=== PATIENT | female | born 1995 | race Two or more races ===

== ENCOUNTER 2024-11-18 22:22 | Inpatient (IN) | payer OTHER ==
[2024-11-18 23:57] VITALS: BMI 24.7
[2024-11-19] MEDS ORDERED: BISMUTH SUBSALICYLATE 524 MG/30 ML PO PRN (01:14)
[2024-11-19] MEDS ORDERED: hydrOXYzine PAMOATE 25 MG CAPSULE (FP) PO PRN (01:14)
[2024-11-19] MEDS ORDERED: BENZOCAINE/MENTHOL (CHLORASEPTIC ) LOZENGE MM PRN (01:14)
[2024-11-19] MEDS ORDERED: METHOCARBAMOL 500 MG TABLET PO PRN (01:14)
[2024-11-19] MEDS ORDERED: NALOXONE (NARCAN) HCL 4 MG/0.1 ML SPRAY NS PRN (01:14)
[2024-11-19] MEDS ORDERED: MAGNESIUM HYDROX 2400MG/30ML ORAL SUSPENSION 30 ML CUP PO PRN (01:14)
[2024-11-19] MEDS ORDERED: BENZONATATE 200 MG CAPSULE PO PRN (01:14)
[2024-11-19] MEDS ORDERED: IBUPROFEN 600 MG TABLET (FP) PO PRN (01:14)
[2024-11-19] MEDS ORDERED: POLYETHYLENE GLYCOL (HEALTHYLAX) 3350 17 GM PACKET PO PRN (01:14)
[2024-11-19] MEDS ORDERED: guaiFENesin 600 MG TABLET.ER (FP) PO PRN (01:14)
[2024-11-19] MEDS ORDERED: MAG HYDROX/AL HYDROX/SIMETH 30 ML UNIT-DOSE CUP PO PRN (01:14)
[2024-11-19] MEDS ORDERED: DICYCLOMINE HCL 10 MG CAPSULE PO PRN (01:14)
[2024-11-19] MEDS ORDERED: IBUPROFEN 400 MG TABLET (FP) PO PRN (01:14)
[2024-11-19] MEDS ORDERED: LOPERAMIDE HCL 2 MG CAPSULE PO PRN (01:14)
[2024-11-19] MEDS ORDERED: chlordiazePOXIDE HCL 25 MG CAPSULE ONE (02:01)
[2024-11-19] MEDS: chlordiazePOXIDE HCL 25 MG CAPSULE PO PRN (02:10)
[2024-11-19] MEDS: chlordiazePOXIDE HCL 25 MG CAPSULE PO SCH (05:24)
[2024-11-19] MEDS: PRENATAL VITAMINS W/ FOLIC ACID TABLET (FP) PO SCH (10:20)
[2024-11-19] MEDS: SERTRALINE HCL 50 MG TABLET (FP) PO SCH (10:53)
[2024-11-19] MEDS: ACETAMINOPHEN 325 MG TABLET (FP) PO PRN (17:28)
[2024-11-19] MEDS: THIAMINE 100 MG TABLET PO SCH (22:22)
[2024-11-19] MEDS: traZODone HCL 50 MG TABLET (FP) PO PRN (22:23)
[2024-11-19] MEDS: MELATONIN 5 MG TABLETS PO SCH (22:23)
[2024-11-20] MEDS: chlordiazePOXIDE HCL 25 MG CAPSULE PO SCH (06:00)
[2024-11-20 11:09] LABS: HEMATOCRIT 36.6 % (32.4-45.2); HEMOGLOBIN 12.7 GM/dL (10.7-15.3); MCH 33.7 pg (25.7-33.7); MCHC 34.8 g/dl (32.0-36.0); MEAN CELL VOLUME 96.9 fl (80-96); MEAN PLT VOLUME 6.8 fl (7.5-11.1); PLATELET COUNT 205 10^3/uL (134-434); RBC 3.77 M/mm3 (3.60-5.2); RDW 14.2 % (11.6-15.6); WHITE BLOOD COUNT 4.1 K/mm3 (4.0-10.0)
[2024-11-20 11:50] LABS: CALCIUM 9.2 mg/dL (8.5-10.1)
[2024-11-20 11:52] LABS: ALBUMIN 3.7 g/dl (3.4-5.0); BLOOD UREA NITROGEN 11.9 mg/dL (7-18)
[2024-11-20 11:55] LABS: CREATININE 0.5 mg/dL (0.55-1.3)
[2024-11-20 11:56] LABS: BILIRUBIN,TOTAL 0.8 mg/dL (0.2-1); TOT PROT 6.9 g/dl (6.4-8.2)
[2024-11-20] MEDS: POTASSIUM CHLORIDE ORAL LIQUID 20 MEQ/15 ML PO ONE ×2 (12:01→16:20)
[2024-11-20] MEDS: ONDANSETRON *ODT* 4 MG TABLET SL PRN (12:18)
[2024-11-21] MEDS ORDERED: chlordiazePOXIDE HCL 10 MG CAPSULE PO PRN
[2024-11-21] MEDS: chlordiazePOXIDE HCL 10 MG CAPSULE PO SCH (05:43)
[2024-11-21] MEDS: POTASSIUM CHLORIDE ORAL LIQUID 20 MEQ/15 ML PO ONE (14:26)
[2024-11-22] MEDS: chlordiazePOXIDE HCL 10 MG CAPSULE PO SCH (06:00)
[2024-11-22 08:49] VITALS: BP 101/64; PULSE 82; RESP 16; TEMP 97.7
[2024-11-22] MEDS: NALOXONE (NYS OPIOID OVERDOSE PROGRAM) 4 MG/0.1 ML SPRAY NS SCH ×2 (09:55→09:56)
[2024-11-23] MEDS ORDERED: chlordiazePOXIDE HCL 10 MG CAPSULE PO ONE (05:00)
== END 2024-11-22 12:36 | disposition home or self-care (01) | DRG 775 ==
LOC: YASAS 22:22 → Y3N 11-19 03:07
PROVIDERS: ADMIT Allergy & Immunology; ATTEND Allergy & Immunology
PROC: HZ2ZZZZ Detoxification Services for Substance Abuse Treatment (ICD-10-PCS; principal; 2024-11-19)
DX: F10.230 Alcohol dependence with withdrawal, uncomplicated (principal); F41.8 Other specified anxiety disorders; F42.9 Obsessive-compulsive disorder, unspecified; E87.5 Hyperkalemia; Z62.810 Personal history of physical and sexual abuse in childhood; Z87.891 Personal history of nicotine dependence
CPT/HCPCS: 36415; 80053; 80305; 80307; 81025; 84132; 85027; 86780; 93005; 93010; Q0162

== ENCOUNTER 2025-01-10 18:08 | Inpatient (IN) | payer OTHER ==
[2025-01-10 18:32] VITALS: BMI 25.4
[2025-01-10] MEDS ORDERED: IBUPROFEN 400 MG TABLET (FP) PO PRN (19:04)
[2025-01-10] MEDS ORDERED: BISMUTH SUBSALICYLATE 524 MG/30 ML PO PRN (19:04)
[2025-01-10] MEDS ORDERED: DICYCLOMINE HCL 10 MG CAPSULE PO PRN (19:04)
[2025-01-10] MEDS ORDERED: ACETAMINOPHEN 325 MG TABLET (FP) PO PRN (19:04)
[2025-01-10] MEDS ORDERED: IBUPROFEN 600 MG TABLET (FP) PO PRN (19:04)
[2025-01-10] MEDS ORDERED: LOPERAMIDE HCL 2 MG CAPSULE PO PRN (19:04)
[2025-01-10] MEDS ORDERED: BENZONATATE 200 MG CAPSULE PO PRN (19:04)
[2025-01-10] MEDS ORDERED: NICOTINE POLACRILEX 2 MG GUM BUC PRN (19:04)
[2025-01-10] MEDS ORDERED: guaiFENesin 600 MG TABLET.ER (FP) PO PRN (19:04)
[2025-01-10] MEDS ORDERED: MAG HYDROX/AL HYDROX/SIMETH 30 ML UNIT-DOSE CUP PO PRN (19:04)
[2025-01-10] MEDS ORDERED: POLYETHYLENE GLYCOL (HEALTHYLAX) 3350 17 GM PACKET PO PRN (19:04)
[2025-01-10] MEDS ORDERED: BENZOCAINE/MENTHOL (CHLORASEPTIC ) LOZENGE MM PRN (19:04)
[2025-01-10] MEDS ORDERED: MAGNESIUM HYDROX 2400MG/30ML ORAL SUSPENSION 30 ML CUP PO PRN (19:04)
[2025-01-10] MEDS ORDERED: NICOTINE POLACRILEX 2 MG LOZENGE BC PRN (19:04)
[2025-01-10] MEDS ORDERED: chlordiazePOXIDE HCL 25 MG CAPSULE ONE (21:44)
[2025-01-10] MEDS ORDERED: levETIRAcetam 500 MG TABLET (FP) PO ONE (21:44)
[2025-01-10] MEDS ORDERED: ONDANSETRON *ODT* 4 MG TABLET ONE (21:45)
[2025-01-10] MEDS: chlordiazePOXIDE HCL 25 MG CAPSULE PO ONE (21:48)
[2025-01-10] MEDS: ONDANSETRON *ODT* 4 MG TABLET SL PRN (21:48)
[2025-01-10] MEDS: levETIRAcetam 500 MG TABLET (FP) PO SCH (21:49)
[2025-01-10] MEDS: THIAMINE 100 MG TABLET PO SCH (23:00)
[2025-01-10] MEDS: MELATONIN 5 MG TABLETS PO SCH (23:00)
[2025-01-10] MEDS: chlordiazePOXIDE HCL 25 MG CAPSULE PO SCH (23:03)
[2025-01-11] MEDS: PRENATAL VITAMINS W/ FOLIC ACID TABLET (FP) PO SCH (10:21)
[2025-01-11] MEDS: FAMOTIDINE 20 MG TABLET PO SCH (10:21)
[2025-01-11] MEDS: SERTRALINE HCL 50 MG TABLET (FP) PO SCH (12:07)
[2025-01-11] MEDS: FLU VACCINE (FLULAVAL) PF 45 MCG/0.5 ML SYRINGE 2024-2025 IM ONE (12:07)
[2025-01-11 16:58] LABS: HEMATOCRIT 38.4 % (32.4-45.2); HEMOGLOBIN 13.4 GM/dL (10.7-15.3); MCH 33.1 pg (25.7-33.7); MCHC 34.9 g/dl (32.0-36.0); MEAN CELL VOLUME 94.7 fl (80-96); MEAN PLT VOLUME 7.2 fl (7.5-11.1); PLATELET COUNT 216 10^3/uL (134-434); RBC 4.06 M/mm3 (3.60-5.2); RDW 13.3 % (11.6-15.6); WHITE BLOOD COUNT 4.6 K/mm3 (4.0-10.0)
[2025-01-11 16:59] LABS: POTASSIUM 3.4 mmol/L (3.5-5.1)
[2025-01-11 17:02] LABS: CALCIUM 9.5 mg/dL (8.5-10.1)
[2025-01-11 17:03] LABS: ALBUMIN 4.1 g/dl (3.4-5.0); BLOOD UREA NITROGEN 13.7 mg/dL (7-18)
[2025-01-11 17:05] LABS: CREATININE 0.6 mg/dL (0.55-1.3)
[2025-01-11 17:07] LABS: BILIRUBIN,TOTAL 1.3 mg/dL (0.2-1); TOT PROT 7.8 g/dl (6.4-8.2)
[2025-01-11 18:05] LABS: HIV INTERPRETATION NEGATIVE (NEGATIVE)
[2025-01-11] MEDS: chlordiazePOXIDE HCL 25 MG CAPSULE PO PRN (20:41)
[2025-01-11] MEDS: METHOCARBAMOL 500 MG TABLET PO PRN (22:28)
[2025-01-11] MEDS: SUVOREXANT 10 MG TABLET PO PRN (22:29)
[2025-01-12] MEDS: chlordiazePOXIDE HCL 25 MG CAPSULE PO SCH (05:45)
[2025-01-13] MEDS ORDERED: chlordiazePOXIDE HCL 10 MG CAPSULE PO PRN
[2025-01-13] MEDS: chlordiazePOXIDE HCL 10 MG CAPSULE PO SCH (06:00)
[2025-01-13 13:14] VITALS: RESP 16
[2025-01-14] MEDS: chlordiazePOXIDE HCL 10 MG CAPSULE PO SCH (05:45)
[2025-01-14] MEDS: NALTREXONE HCL 50 MG TABLET PO ONE (15:17)
[2025-01-14] MEDS: SUVOREXANT 10 MG TABLET PO PRN (22:06)
[2025-01-15] MEDS: chlordiazePOXIDE HCL 10 MG CAPSULE PO ONE (05:54)
[2025-01-15] MEDS: NALTREXONE HCL 50 MG TABLET PO SCH (09:33)
[2025-01-15 10:32] VITALS: BP 101/79; PULSE 79; TEMP 97.7
== END 2025-01-15 10:00 | disposition home or self-care (01) | DRG 775 ==
LOC: YASAS 18:08 → Y6N 21:28
PROVIDERS: ADMIT Allergy & Immunology; ATTEND Allergy & Immunology
PROC: HZ2ZZZZ Detoxification Services for Substance Abuse Treatment (ICD-10-PCS; principal; 2025-01-10)
DX: F10.230 Alcohol dependence with withdrawal, uncomplicated (principal); F17.213 Nicotine dependence, cigarettes, with withdrawal; F10.280 Alcohol dependence with alcohol-induced anxiety disorder; F10.282 Alcohol dependence with alcohol-induced sleep disorder; F42.9 Obsessive-compulsive disorder, unspecified; F32.9 Major depressive disorder, single episode, unspecified; E87.6 Hypokalemia; K21.9 Gastro-esophageal reflux disease without esophagitis; Z91.410 Personal history of adult physical and sexual abuse; Z63.0 Problems in relationship with spouse or partner
CPT/HCPCS: 36415; 80053; 80305; 80307; 81025; 84132; 85027; 86780; 87389; 90656; 93005; 93010; G0008; Q0162